=== PATIENT | male | born 2000 | race Caucasian/White ===

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

== ENCOUNTER 2020-09-10 23:20 | Emergency (ER) | payer SELFPAY ==
[~2020-09-10] VITALS: Ht 175.3 cm; Wt 90.9 kg
[~2020-09-10 23:20] MED LIST: DESYREL 50MG50 MG PO; PROZAC 10MG10 MG PO; SINGULAIR 110 MG/TAB PO; ZYRTEC5 MG PO
[2020-09-10 23:26] VITALS: TEMP 98.1
[2020-09-11 00:48] VITALS: BP 132/70; PULSE 78
== END 2020-09-11 00:48 | disposition home or self-care (01) ==
LOC: COL.ER 23:20
DX: R06.02 Shortness of breath (principal); R09.89 Other specified symptoms and signs involving the circulatory and respiratory systems; J45.909 Unspecified asthma, uncomplicated; Z88.1 Allergy status to other antibiotic agents

== ENCOUNTER 2022-06-20 04:07 | Emergency (ER) | payer OTHER ==
[~2022-06-20] VITALS: Ht 175.3 cm; Wt 95.5 kg
[2022-06-20 04:15] VITALS: TEMP 98.2
[2022-06-20] MEDS ORDERED: PREDNISONE20 MG PO (06:10)
[2022-06-20] MEDS ORDERED: VENTOLIN0.09 MG IH (06:10)
[2022-06-20 06:20] VITALS: BP 135/88; PULSE 111
== END 2022-06-20 06:20 | disposition home or self-care (01) ==
LOC: COL.ER 04:07
DX: J45.901 Unspecified asthma with (acute) exacerbation (principal)
CPT/HCPCS: J7512

== ENCOUNTER 2022-08-01 03:41 | Emergency (ER) | payer OTHER ==
[~2022-08-01] VITALS: Ht 177.8 cm; Wt 95.5 kg
[~2022-08-01 03:41] MED LIST changes: +PREDNISONE20 MG PO; +VENTOLIN0.09 MG IH
[2022-08-01 03:42] VITALS: TEMP 97.1
[2022-08-01] MEDS ORDERED: PREDNISONE20 MG PO (04:17)
[2022-08-01 04:56] VITALS: BP 144/78; PULSE 76
== END 2022-08-01 04:56 | disposition home or self-care (01) ==
LOC: COL.ER 03:41
DX: J45.901 Unspecified asthma with (acute) exacerbation (principal)
CPT/HCPCS: J7512